=== PATIENT | male | born 1995 | race American Indian/Alaskan Native ===

== ENCOUNTER 2018-03-13 23:57 | Emergency (ER) | payer SELFPAY ==
[2018-03-14] MEDS ORDERED: TYLENOL PO ONE (02:11)
[2018-03-14 03:06] LABS: Bilirubin,Urine NEG (Negative); Blood,Urine NEG (Negative); Color,Urine Yellow (Yellow); Mucus,Urine 1+ /HPF; Protein,Urine <15 mg/dL mg/dL (Negative)
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
[2018-03-14 07:19] VITALS: BP 100/70
== END 2018-03-14 07:00 | disposition home or self-care (01) ==
LOC: ED 23:57
DX: M54.89 Other dorsalgia (principal); F17.200 Nicotine dependence, unspecified, uncomplicated
CPT/HCPCS: 74176; 81001; 99284

== ENCOUNTER 2021-05-10 12:49 | Emergency (ER) | payer SELFPAY ==
[2021-05-10 13:51] VITALS: BP 107/71
--- NOTE | 2021-05-10 13:59 | Emergency Department Report ---
ED ENT HPI - General Chief complaint: Earache Stated complaint: BILATERAL EAR PAIN Time Seen by Provider: 05/10/21 13:51 Source: patient Mode of arrival: Ambulatory Limitations: No Limitations - History of Present Illness Initial comments: This is a 26-year-old male brought by mother nontoxic, well nourished in appearance, no acute signs of distress presents to the ED with c/o of left earache and some discharge x2 weeks. Patient denies any ear drainage. Patient denies any trauma to the area. Patient denies any mastoid tenderness. Patient agrees to tragus pain. Patient denies hearing decrease or hearing changes. Patient denies any fever, chills, nausea, vomiting, chest pain, short of breath, headache or stiff neck. Patient denies any drug allergies or significant past medical history. MD complaint: ear pain -: days(s) Location: L ear Severity: mild Severity scale (0 -10): 3 Quality: aching Consistency: constant Improves with: none Worsens with: none Associated Symptoms: discharge from ear. denies: fever, cough, gum swelling, toothache, pain with swallowing, sore throat, tinnitus, hearing loss, rhinorrhea - Related Data Previous Rx's Medication Instructions Recorded Last Taken Type Acetaminophen/Codeine [Tylenol 1 tab PO Q6H PRN #12 tab 03/14/18 Unknown Rx /Codeine # 3 tab] Ibuprofen 600 mg PO Q8H PRN #30 tablet 03/14/18 Unknown Rx Amoxicillin [Amoxicillin TAB] 875 mg PO BID #20 tablet 05/10/21 Unknown Rx Polymyxin B Sulf/Trimethoprim 3 drops TID 7 Days #1 bottle 05/10/21 Unknown Rx [Polytrim Eye Drops] Allergies Allergy/AdvReac Type Severity Reaction Status Date / Time No Known Allergies Allergy Unverified 03/14/18 02:11 ED Dental HPI - General Chief complaint: Earache Stated complaint: BILATERAL EAR PAIN Time Seen by Provider: 05/10/21 13:51 Source: patient Mode of arrival: Ambulatory Limitations: No Limitations - Related Data Previous Rx's Medication Instructions Recorded Last Taken Type Acetaminophen/Codeine [Tylenol 1 tab PO Q6H PRN #12 tab 03/14/18 Unknown Rx /Codeine # 3 tab] Ibuprofen 600 mg PO Q8H PRN #30 tablet 03/14/18 Unknown Rx Amoxicillin [Amoxicillin TAB] 875 mg PO BID #20 tablet 05/10/21 Unknown Rx Polymyxin B Sulf/Trimethoprim 3 drops TID 7 Days #1 bottle 05/10/21 Unknown Rx [Polytrim Eye Drops] Allergies Allergy/AdvReac Type Severity Reaction Status Date / Time No Known Allergies Allergy Unverified 03/14/18 02:11 ED Review of Systems ROS: Stated complaint: BILATERAL EAR PAIN Other details as noted in HPI Constitutional: denies: chills, fever Eyes: denies: eye pain, eye discharge, vision change ENT: ear pain. denies: throat pain, dental pain, hearing loss, epistaxis, congestion Respiratory: denies: cough, shortness of breath, wheezing Cardiovascular: denies: chest pain, palpitations Endocrine: no symptoms reported Gastrointestinal: denies: abdominal pain, nausea, diarrhea Genitourinary: denies: urgency, dysuria Musculoskeletal: denies: back pain, joint swelling, arthralgia Skin: denies: rash, lesions Neurological: denies: headache, weakness, paresthesias Psychiatric: denies: anxiety, depression Hematological/Lymphatic: denies: easy bleeding, easy bruising ED Past Medical Hx - Past Medical History Previous Medical History?: No - Surgical History Past Surgical History?: No - Social History Smoking Status: Current Every Day Smoker Substance Use Type: None - Medications Home Medications: Home Medications Medication Instructions Recorded Confirmed Last Taken Type Acetaminophen/Codeine [Tylenol 1 tab PO Q6H PRN #12 tab 03/14/18 Unknown Rx /Codeine # 3 tab] Ibuprofen 600 mg PO Q8H PRN #30 tablet 03/14/18 Unknown Rx Amoxicillin [Amoxicillin TAB] 875 mg PO BID #20 tablet 05/10/21 Unknown Rx Polymyxin B Sulf/Trimethoprim 3 drops TID 7 Days #1 bottle 05/10/21 Unknown Rx [Polytrim Eye Drops] ED Physical Exam - General Limitations: No Limitations General appearance: alert, in no apparent distress - Head Head exam: Present: atraumatic, normocephalic - Eye Eye exam: Present: normal appearance - Expanded ENT Exam Expanded Ear exam: Present: normal external inspection TM/Canal exam: Erythema: Left TM, Bulging: Left TM Mouth exam: Present: normal external inspection. Absent: drooling, trismus, muffled voice Teeth exam: Present: normal inspection Throat exam: Positive: normal inspection, other (uvula midline). Negative: tonsillar erythema, tonsillomegaly, tonsillar exudate, R peritonsillar mass, L peritonsillar mass - Neck Neck exam: Present: normal inspection, full ROM. Absent: lymphadenopathy - Respiratory Respiratory exam: Absent: respiratory distress - Cardiovascular Cardiovascular Exam: Present: regular rate - Extremities Exam Extremities exam: Present: full ROM - Back Exam Back exam: Present: full ROM - Neurological Exam Neurological exam: Present: alert, oriented X3, normal gait - Psychiatric Psychiatric exam: Present: normal affect, normal mood - Skin Skin exam: Present: warm, dry, intact, normal color. Absent: rash ED Course Vital Signs 05/10/21 13:49 Temperature 98.5 F Pulse Rate 67 Respiratory 18 Rate Blood Pressure 107/71 O2 Sat by Pulse 99 Oximetry - Reevaluation(s) Reevaluation #1: 05/10/21 13:56 Patient is speaking in full sentences with no signs of distress noted. ED Medical Decision Making - Medical Decision Making Patient be treated with amoxicillin and Polytrim. Vital signs are stable. Otherwise physical exam is unremarkable. Patient was instructed to follow-up with a primary care doctor in 3-5 days or if symptoms worsen and continue return to emergency room as soon as possible. At time of discharge, the patient does not seem toxic or ill in appearance. No acute signs of distress noted. Patient agrees to discharge treatment plan of care. No further questions noted by the patient. Critical care attestation.: If time is entered above; I have spent that time in minutes in the direct care of this critically ill patient, excluding procedure time. ED Disposition Clinical Impression: Left otitis media Qualifiers: Otitis media type: unspecified Qualified Code(s): H66.92 - Otitis media, unspecified, left ear Left otitis externa Qualifiers: Otitis externa type: unspecified type Chronicity: acute Qualified Code(s): H60.502 - Unspecified acute noninfective otitis externa, left ear Disposition: 01 HOME / SELF CARE / HOMELESS Is pt being admited?: No Does the pt Need Aspirin: No Condition: Stable Instructions: Otitis Externa, [id number], Otitis Media, Adult Additional Instructions: Follow-up with a primary care doctor in 3-5 days or if symptoms worsen and continue return to emergency room as soon as possible. Prescriptions: Amoxicillin [Amoxicillin TAB] 875 mg PO BID #20 tablet Polymyxin B Sulf/Trimethoprim [Polytrim Eye Drops] 3 drops TID 7 Days #1 bottle Referrals: PRIMARY CARE, [Referring] - 3-5 Days MARITZA BURROWS MD [Staff Physician] - 3-5 Days Time of Disposition: 14:05
== END 2021-05-10 14:30 | disposition home or self-care (01) ==
LOC: ED 12:49
DX: H60.92 Unspecified otitis externa, left ear (principal); H66.92 Otitis media, unspecified, left ear; F17.200 Nicotine dependence, unspecified, uncomplicated; Z79.899 Other long term (current) drug therapy
CPT/HCPCS: 99281

== ENCOUNTER 2022-04-30 12:21 | Emergency (ER) | payer SELFPAY ==
[2022-04-30 13:05] VITALS: BP 118/82
== END 2022-04-30 14:00 | disposition left against medical advice (07) ==
LOC: ED 12:21
DX: H66.90 Otitis media, unspecified, unspecified ear (principal); Z53.21 Procedure and treatment not carried out due to patient leaving prior to being seen by health care provider

== ENCOUNTER 2022-04-30 23:42 | Emergency (ER) | payer SELFPAY ==
[2022-05-01] MEDS ORDERED: ACETAMINOPHEN 500 MG TAB PO ONE (02:30)
[2022-05-01] MEDS ORDERED: IBUPROFEN 600 MG TAB PO ONE (02:30)
[2022-05-01] MEDS ORDERED: CLINDAMYCIN 300 MG CAP PO ONE (02:30)
--- NOTE | 2022-05-01 03:03 | Emergency Department Report ---
ED General Adult HPI - General Chief complaint: Earache Stated complaint: EAR INFECTION Source: patient Mode of arrival: Ambulatory Limitations: No Limitations - History of Present Illness Initial comments: Patient is a 27-year-old -[place] male with no past medical history presents to the ED with complaint of acute onset persistent left ear pain for the last 1 month. Patient states that he initially was evaluated and treated at an urgent care with amoxicillin 250 mg 3 times a day but did not get any relief. Patient states that the pain has been constant and persistent especially in the last 2 weeks such that he has not been able to sleep most of the night because of worsening pain. Patient denies dizziness, syncope, chest pain or shortness of breath, sore throat, headache, hearing loss, traumatic injury, nasal and sinus congestion, change in vision or neck pain. MD Complaint: Left ear pain -: Gradual, month(s) (1) Location: face (Left ear pain) Radiation: non-radiation Severity scale (0 -10): 7 Quality: aching, sharp Consistency: constant Improves with: none Worsens with: none Associated Symptoms: denies other symptoms, other (Left ear pain). denies: confusion, chest pain, cough, diaphoresis, fever/chills, headaches, loss of appetite, malaise, nausea/vomiting, rash, seizure, shortness of breath, syncope, weakness Treatments Prior to Arrival: none - Related Data Previous Rx's Medication Instructions Recorded Last Taken Type Acetaminophen/Codeine [Tylenol 1 tab PO Q6H PRN #12 tab 03/14/18 Unknown Rx /Codeine # 3 tab] Ibuprofen 600 mg PO Q8H PRN #30 tablet 03/14/18 Unknown Rx Amoxicillin [Amoxicillin TAB] 875 mg PO BID #20 tablet 05/10/21 Unknown Rx Polymyxin B Sulf/Trimethoprim 3 drops TID 7 Days #1 bottle 05/10/21 Unknown Rx [Polytrim Eye Drops] Clindamycin [Clindamycin CAP] 300 mg PO Q6H #40 cap 05/01/22 Unknown Rx Ibuprofen [Motrin] 800 mg PO Q8HR PRN #30 tablet 05/01/22 Unknown Rx Ofloxacin 0.3% [Floxin 0.3% Otic] 5 drop OT DAILY #5 ml 05/01/22 Unknown Rx Allergies Allergy/AdvReac Type Severity Reaction Status Date / Time No Known Allergies Allergy Unverified 04/30/22 13:05 ED Review of Systems ROS: Stated complaint: EAR INFECTION Other details as noted in HPI Constitutional: denies: chills, fever Eyes: denies: eye pain, eye discharge, vision change ENT: ear pain (Left ear pain). denies: throat pain, dental pain, hearing loss, epistaxis, congestion Respiratory: denies: cough, shortness of breath, wheezing Cardiovascular: denies: chest pain, palpitations Endocrine: no symptoms reported Gastrointestinal: denies: abdominal pain, nausea, diarrhea Genitourinary: denies: urgency, dysuria Musculoskeletal: denies: back pain, joint swelling, arthralgia Skin: denies: rash, lesions Neurological: denies: headache, weakness, paresthesias Psychiatric: denies: anxiety, depression Hematological/Lymphatic: denies: easy bleeding, easy bruising ED Past Medical Hx - Social History Smoking Status: Current Every Day Smoker Substance Use Type: None - Medications Home Medications: Home Medications Medication Instructions Recorded Confirmed Last Taken Type Acetaminophen/Codeine [Tylenol 1 tab PO Q6H PRN #12 tab 03/14/18 Unknown Rx /Codeine # 3 tab] Ibuprofen 600 mg PO Q8H PRN #30 tablet 03/14/18 Unknown Rx Amoxicillin [Amoxicillin TAB] 875 mg PO BID #20 tablet 05/10/21 Unknown Rx Polymyxin B Sulf/Trimethoprim 3 drops TID 7 Days #1 bottle 05/10/21 Unknown Rx [Polytrim Eye Drops] Clindamycin [Clindamycin CAP] 300 mg PO Q6H #40 cap 05/01/22 Unknown Rx Ibuprofen [Motrin] 800 mg PO Q8HR PRN #30 tablet 05/01/22 Unknown Rx Ofloxacin 0.3% [Floxin 0.3% Otic] 5 drop OT DAILY #5 ml 05/01/22 Unknown Rx ED Physical Exam - General Limitations: No Limitations General appearance: alert, in no apparent distress - Head Head exam: Present: atraumatic, normocephalic, normal inspection - Eye Eye exam: Present: normal appearance, PERRL, EOMI Pupils: Present: normal accommodation - ENT ENT exam: Present: normal orophraynx, mucous membranes moist, other (Erythematous bulging left tympanic membrane with effusion) - Neck Neck exam: Present: normal inspection, full ROM. Absent: tenderness - Respiratory Respiratory exam: Present: normal lung sounds bilaterally. Absent: respiratory distress, wheezes, rales, rhonchi, chest wall tenderness, decreased breath sounds - Cardiovascular Cardiovascular Exam: Present: regular rate, normal rhythm, normal heart sounds. Absent: systolic murmur, diastolic murmur, rubs, gallop - GI/Abdominal GI/Abdominal exam: Present: soft, normal bowel sounds. Absent: tenderness, guarding, rebound, hyperactive bowel sounds, hypoactive bowel sounds, organomegaly, bruit - Extremities Exam Extremities exam: Present: normal inspection, full ROM, normal capillary refill. Absent: tenderness - Back Exam Back exam: Present: normal inspection, full ROM. Absent: tenderness, CVA tenderness (R), CVA tenderness (L), muscle spasm, paraspinal tenderness, vertebral tenderness - Neurological Exam Neurological exam: Present: alert, oriented X3, CN II-XII intact, normal gait, reflexes normal - Psychiatric Psychiatric exam: Present: normal affect, normal mood - Skin Skin exam: Present: warm, dry, intact, normal color. Absent: rash ED Course Vital Signs 04/30/22 23:52 Temperature 97.8 F Pulse Rate 79 Respiratory 18 Rate Blood Pressure 117/80 O2 Sat by Pulse 99 Oximetry ED Medical Decision Making - Medical Decision Making This is a 27-year-old -[place] male with no past medical history presents to the ED with complaint of acute onset persistent left ear pain for the last 1 month. Patient states that he initially was evaluated and treated at an urgent care with amoxicillin 250 mg 3 times a day but did not get any relief. Patient states that the pain has been constant and persistent especially in the last 2 weeks such that he has not been able to sleep most of the night because of worsening pain. In the ED, patient is alert and oriented x3 and is not in any distress. Patient is able dynamically stable. Patient was treated for pain in the ED and also given initial oral antibiotics. Patient was discharged home on pain medication and antibiotics and advised to follow-up with his primary care physician in 7 to 10 days for reevaluation. Patient was advised to return to the ED immediately if symptoms get worse. - Differential Diagnosis Otitis media; otitis externa; URI; Critical care attestation.: If time is entered above; I have spent that time in minutes in the direct care of this critically ill patient, excluding procedure time. ED Disposition Clinical Impression: Acute otitis media with effusion of left ear Disposition: HOME / SELF CARE / HOMELESS Is pt being admited?: No Does the pt Need Aspirin: No Condition: Stable Instructions: Otitis Media (ED), Ear Drops, Adult, [id number], Otitis Media, Adult, [id number] Additional Instructions: Take medication with food, drink plenty of fluids and follow up with your primary care physician in 7-10 days for reevaluation. Return to the ED immediately if symptoms get worse. Prescriptions: Clindamycin [Clindamycin CAP] 300 mg PO Q6H #40 cap Ofloxacin 0.3% [Floxin 0.3% Otic] 5 drop OT DAILY #5 ml Ibuprofen [Motrin] 800 mg PO Q8HR PRN #30 tablet PRN Reason: Pain , Severe (7-10) Referrals: [facility] [Provider Group] - 7-10 days Time of Disposition: 03:03 Print Language: [place] CITIZ[place]
[2022-05-01 04:12] VITALS: BP 121/87
== END 2022-05-01 04:12 | disposition home or self-care (01) ==
LOC: ED 23:42
DX: H65.02 Acute serous otitis media, left ear (principal); F17.200 Nicotine dependence, unspecified, uncomplicated
CPT/HCPCS: 99282